=== PATIENT | male | born 1975 | race Caucasian/White ===

== ENCOUNTER 2018-03-31 15:19 | Inpatient (IN) | payer OTHER ==
[~2018-03-31] VITALS: Ht 175.3 cm; Wt 82.8 kg
--- NOTE | 2018-03-31 15:24 | ED PSYCHIATRIC COMPLAINT ---
History of Present Illness General Chief Complaint: Psychiatric Related Complaint Stated Complaint: BIBA HEARING VOICES Source: patient Exam Limitations: no limitations Vital Signs & Intake/Output Vital Signs & Intake/Output Vital Signs Date Time Temp Pulse Resp B/P B/P Pulse O2 O2 Flow FiO2 Mean Ox Delivery Rate 04/01 0643 98.6 55 16 116/71 97 Room Air 04/01 0324 98.0 56 16 104/68 97 Room Air 03/31 2329 98.8 79 20 123/62 99 Room Air 03/31 2140 97.7 66 20 103/50 96 Room Air 03/31 1918 97.7 66 20 129/77 97 Room Air 03/31 1701 98.0 72 20 123/69 99 Room Air 03/31 1534 97.8 62 18 138/71 98 Room Air ED Intake and Output 04/01 0000 03/31 1200 Intake Total 0 Output Total Balance 0 Intake, Oral 0 Allergies Coded Allergies: No Known Allergies (03/31/18) Triage Nurses Notes Reviewed? yes Onset: Gradual Duration: constant Timing: recent history Severity: severe Severity Numbers: 10 HPI: Patient is a 43-year-old male with a past medical history of asthma who presents emergency room with concerns of sudden onset history of hearing voices patient in which today he walked into [facility] however he did not have an appointment or and establishment with this facility and which the staff heard patient's history in which patient was brought in by ambulance for continuous auditory hallucinations which he states the voices are telling him that his family will be abducted and is threatening to him Patient denies any illicit drug use or alcohol use does smoke tobacco. Denies any illness denies any homicidal ideation patient lives with his girlfriend and his children in a private residence. Patient currently is not on medications patient has no history of prior to 7 months ago of auditory or visual hallucinations (Jacoby Muniz) Past History Travel History Traveled to [place] past 21 day No Medical History Any Pertinent Medical History? see below for history Respiratory: asthma Surgical History Surgical History: non-contributory Family History Hx Contributory? No (Jacoby Muniz) Review of Systems Review of Systems Constitutional: Reports: no symptoms. EENTM: Reports: no symptoms. Respiratory: Reports: no symptoms. Cardiovascular: Reports: no symptoms. GI: Reports: no symptoms. Genitourinary: Reports: no symptoms. Musculoskeletal: Reports: no symptoms. Skin: Reports: no symptoms. Neurological/Psychological: Reports: see HPI. Hematologic/Endocrine: Reports: no symptoms. Immunologic/Allergic: Reports: no symptoms. All Other Systems: Reviewed and Negative (Jacoby Muniz) Physical Exam Physical Exam General Appearance: no apparent distress, alert, comfortable Head: atraumatic Eyes: Bilateral: normal appearance. Ears, Nose, Throat: hearing grossly normal Respiratory: normal breath sounds, chest non-tender Cardiovascular: regular rate/rhythm Neurological/Psychiatric: no motor/sensory deficits, awake, calm Behavoir/Eye Contact/Speech: cooperative Thoughts/Hallucinations: auditory hallucinations Skin: intact, normal color SAD PERSONS SAD PERSONS Response Value Male Sex? yes 1 Age <19 or >45 years? yes 1 Total 2 SAD PERSONS Done? yes (Jacoby Muniz) Progress Differential Diagnosis: dementia, drug intoxication, drug overdose, drug withdrawal, electrolyte abnormality, encephalitis, hypoglycemia, hypothyroidism, IC hem/mass/tumor, meningitis Plan of Care: Orders Procedure Date/time Status Regular Diet 03/31 D Active Patient Safety Monitor 03/31 1523 Active URINE DRUG SCREEN FOR ER ONLY 03/31 1523 Complete ETHANOL 03/31 1523 Complete COMPREHENSIVE METABOLIC PANEL 03/31 1523 Complete CBC WITHOUT DIFFERENTIAL 03/31 1523 Complete ED CRISIS PSYCH CONSULT 03/31 1523 Active Laboratory Tests 03/31/18 1537: Urine Opiates Screen < 100, Methadone Screen < 40, Barbiturate Screen < 60, Ur Phencyclidine Scrn < 6.00, Amphetamines Screen < 100, U Benzodiazepines Scrn < 85, Urine Cocaine Screen < 50, Urine Cannabis Screen 78.80 H 03/31/18 1532: Anion Gap 11, Estimated GFR > 60, BUN/Creatinine Ratio 13.3, Glucose 91, Calcium 9.8, Total Bilirubin 0.6, AST 22, ALT 31, Alkaline Phosphatase 47, Total Protein 7.4, Albumin 4.3, Globulin 3.1, Albumin/Globulin Ratio 1.4, CBC w Diff NO MAN DIFF REQ, RBC 5.14, MCV 90.4, MCH 30.4, MCHC 33.6, RDW 12.9, MPV 7.7, Gran % 51.2, Lymphocytes % 37.8, Monocytes % 9.1, Eosinophils % 1.5, Basophils % 0.4, Absolute Granulocytes 4.2, Absolute Lymphocytes 3.1, Absolute Monocytes 0.7 H, Absolute Eosinophils 0.1, Absolute Basophils 0, Serum Alcohol < 10.0 Patient on initial presentation shows no signs of intoxication patient has concerning symptoms of auditory hallucinations, it is notes to me that crisis team evaluated patient and will be a bed search for admission Discussed handoff with Dr. Almeida Hand-Off Endorsed To: Levi Almeida MD Endorsed Time: 2300 Pending: other (BED SEARCH) (Jacoby Muniz) Hand-Off Endorsed To: Latrell Villareal MD Endorsed Time: 0700 Pending: other (Levi Almeida MD) Comments: 04/01/2018 7:32:44 AM patient signed out to me by Dr. Almeida at shift change control analyst. (Latrell Villareal MD) Departure Departure Disposition: STILL A PATIENT Condition: Stable Clinical Impression Primary Impression: Psychosis Secondary Impressions: Auditory hallucination Departure Forms: Customer Survey General Discharge Information (Jacoby Muniz) PA/ENVIRONMENTAL ATTORNEY Co-Sign Statement Statement: ED Attending supervision documentation- [] I saw and evaluated the patient. I have also reviewed all the pertinent lab results and diagnostic results. I agree with the findings and the plan of care as documented in the PA's/ENVIRONMENTAL ATTORNEY's documentation. [X] I have reviewed the ED Record and agree with the PA's/ENVIRONMENTAL ATTORNEY's documentation. [] Additions or exceptions (if any) to the PAs/ENVIRONMENTAL ATTORNEY's note and plan are summarized below: [] (Levi Almeida MD) Critical Care Note Critical Care Note Critical Care Time: 30-74 min (Jacoby Muniz)
[2018-03-31 15:51] LABS: ABSOLUTE BASOPHIL COUNT 0 /CUMM (0.0-0.2); ABSOLUTE EOSINOPHIL COUNT 0.1 /CUMM (0.0-0.7); ABSOLUTE GRANULOCYTE CT 4.2 /CUMM (1.4-6.5); ABSOLUTE LYMPH COUNT 3.1 /CUMM (1.2-3.4); ABSOLUTE MONOCYTE COUNT 0.7 /CUMM (0.10-0.60); BASOPHIL % 0.4 % (0.0-2.0); EOSINOPHIL % 1.5 % (0-5); GRANULOCYTE % 51.2 % (42.2-75.2); HEMATOCRIT 46.5 % (42-52); MEAN CORPUSCULAR HGB 30.4 PG (27.0-31.0); MEAN CORPUSCULAR HGB CONC 33.6 G/DL (33.0-37.0); MEAN CORPUSCULAR VOLUME 90.4 FL (80.0-94.0); MEAN PLATELET VOLUME 7.7 FL (7.4-10.4); PLATELET COUNT 305 /CUMM (130-400); RBC DISTRIBUTION WIDTH 12.9 % (11.5-14.5); RED BLOOD CELL CT 5.14 /CUMM (4.70-6.10); WHITE BLOOD CELL COUNT 8.2 /CUMM (4.8-10.8)
--- NOTE | 2018-03-31 19:01 | ED PSYCH CRISIS CONSULTATION ---
Crisis Consult Basic Assessment Date of Consult: 03/31/18 Responsible Person/Accompanied By: Brought in by ambulance from [facility]. Insurance Authorization: Insurance #1: Insurance name: SELF-PAY ED Provider: Patient's ED Provider: Jacoby Muniz Primary Care Physician: Patient's PCP: Patient Has No Primary Care Dr PCP's Phone Number: Current Psychiatrist: No current psychiatrist Chief Complaint: Psychiatric Related Complaint Patient's Quote: "I got voices...theyre threatening, condescending..." Present Illness: Patient is a 43 year old male who [facility] to [facility] emergency department by ambulance from [facility] mental health clinic. Patient was there as a walk - in seeking treatment. Patient reports auditory hallucinations and states "I got voices....they're threatening...condescending...telling me theyre going to abduct my family...get me in to retirement...get me committed to a psych hospital and my family will disappear." Patient reports he is from the [facility] and recently moved to [place]. Patient was also residing in [place] briefly. Patient currently lives with his girlfriend. his children (ages 1 & 4) and his girlfriend's family in a home in [place], [place]. Patient reports he has no current mental health treatment provider. Patient denies current psychotropic medications. Patient reports historical diagnosis of schizophrenia, schizoaffective disorder, and major depressive disorder. Patient reports he was previously prescribed Risperdal. Patient indicates he has had previous psychiatric hospitalizations at [facility] in [place], [place] and a hospital he could not recall in [place]. Patient denies any medical concerns and he is medically cleared by attending emergency department physician reading assistant BRITTANY Abrams. Patient's urine toxicology screening is positive for marijuana. Patient denies recent use but admits to using marijuana heavily about a month ago while living in [place]. Patient reports he tried marijuana to help with auditory hallucinations but they only made them worse and louder. Patient reports current auditory hallucinations. Patient reports first onset of hearing voices was about 6 years. Patient indicates these have intensified over the past 7 months - he asserts they are now present "everyday 29/04." Patient denies visual hallucinations. Patient denies any command hallucinations. Patient denies current or past suicidal ideation, intent or plan. Patient states "I'm a strong willed person" when asked about self harm thoughts. A Gilchrist Suicide Severity Rating Scale (C.-S.S.R.S.) was administered with no significant risk factors identified. Patient presents alert, oriented with flat affect / depressed mood. Patient asserts the recent intensification of the auditory hallucinations have impacted his ability to function and concentrate. Patient only identified his girlfriend as a support. Patient reports his girlfriend is deaf and can be reached by TTY at - however when this check writer salesperson attempted to call, the phone was not setup. Patient is unemployed currently and has been for ~5 years. 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 Patient's Address: [address] [place] [address] Who Do You Live With? Significant Other Family/Informants Interviewed: Girlfriend Oxana Krishna (Gf is *) Allergies - Coded Allergies: No Known Allergies (03/31/18) Laboratory Results: Laboratory Tests 03/31/18 1537: Urine Opiates Screen < 100, Methadone Screen < 40, Barbiturate Screen < 60, Ur Phencyclidine Scrn < 6.00, Amphetamines Screen < 100, U Benzodiazepines Scrn < 85, Urine Cocaine Screen < 50, Urine Cannabis Screen 78.80 H 03/31/18 1532: Anion Gap 11, Estimated GFR > 60, BUN/Creatinine Ratio 13.3, Glucose 91, Calcium 9.8, Total Bilirubin 0.6, AST 22, ALT 31, Alkaline Phosphatase 47, Total Protein 7.4, Albumin 4.3, Globulin 3.1, Albumin/Globulin Ratio 1.4, CBC w Diff NO MAN DIFF REQ, RBC 5.14, MCV 90.4, MCH 30.4, MCHC 33.6, RDW 12.9, MPV 7.7, Gran % 51.2, Lymphocytes % 37.8, Monocytes % 9.1, Eosinophils % 1.5, Basophils % 0.4, Absolute Granulocytes 4.2, Absolute Lymphocytes 3.1, Absolute Monocytes 0.7 H, Absolute Eosinophils 0.1, Absolute Basophils 0, Serum Alcohol < 10.0 Past History Past Medical History Neurological: NONE EENT: NONE Cardiovascular: NONE Respiratory: asthma Gastrointestinal: NONE Hepatic: NONE Renal: NONE Musculoskeletal: NONE Psychiatric: NONE Endocrine: NONE Past Surgical History Surgical History: non-contributory Psychosocial History Strengths/Capabilities: Patient has fair insight and is amenable to treatment. Physical Limitations (Interventions): None assessed Psychiatric Treatment History Psych Treatment Psychiatric Treatment Yes Inpatient Treatment Yes Outpatient Treatment Yes Location of Treatment [facility] Reason for Treatment Schizoaffective disorder Dates of Treatment 2011 - present Response to Treatment Unknown Diagnosis by History: Schizoaffective Disorder Schizophrenia Spectrum Disorder Major Depressive Disorder Substance Use/Abuse History Drug Use/Abuse Substances Used/Abused Yes Substance Used/Abused Marijuana First Use Patient did not specify Last Used Patient reports last use was one month ago. How much used/taken Patient did not specify exact amount used. How often Patient reports use ~2 x per day. For how long Patient reports longstanding use of marijuana. Route of use Inhalation. Substance Abuse Treatment Substance Abuse Treatment Past Substance Abuse [place] No Current Mental Status Mental Status Orientation: Person, Place, Situation Affect: Flat Speech: WNL Neuro-vegetative: Anhedonia, Concentration Poor Appearance Appearance- Dress/Hygiene: Patient dressed in hospital attire. Long hair. Cabrera skin. Behaviors Thought Process: WNL Thought Content: Auditory Hallucinations Memory: WNL Insight: Fair SI/HI Risk Assessment Past Suicidal Ideation/Attempts No (Patient denies/. ) Current Suicidal Ideation/Att No (Patient denies .) Past Homicidal Ideation/Att: No Current Homicidal Ideation/Attempts No Degree of Intent: None Risk Factors: chronic/serious med cond., SA/MH hospitalized, substance abuse, male, Auditory hallucinations. Lethality Ratin PTSD Checklist PTSD Done? patient declined (No trauma history reported.) ED Management Sitter: Yes Restraints: No (Patient is calm & cooperative.) DSM5/PS Stressors/Medical Prob Diagnosis' (DSM 5, Stressors, Medical): F29 Unspecified schizophrenia spectrum and other psychotic disorder Current GAF: 25 Comments: Unemployed Departure Disposition Psych Medical Clearance Date: 03/31/18 Medically Cleared at: 1744 Time Started: 1744 Time Ended: 1844 Psychiatrist Consulted: Dr. Rakesh Obregon M.D. Date Disposition Established: 03/31/18 Time Disposition Established: 1844 Plan for Disposition - Modality: Bed Search Rationale for Disposition: Crisis evaluation reviewed with on-call psychiatrist Dr. Obregon. Patient meets criteria currently for an inpatient psychiatric admission due to symptoms of psychosis and need for psychiatric stabilization. Referrals Patient Has No Primary Care Dr (PCP/Family)
--- NOTE | 2018-04-01 13:27 | IP CRISIS DIAG ASSESS PSYCH ---
Diagnostic Assessment Basic Assessment Insurance Authorization: Pt was authorized for 3 units of inpatient care from 04/01/18 through 04/03/18 through [employer]. Auth # [id number] and client auth # is [id number] Primary Care Physician: Patient's PCP: Patient Has No Primary Care Dr PCP's Phone Number: Patient's Quote: "I got voices...theyre threatening, condescending..." Present Illness: Per Crisis Consult authored by Presley Wang LCSW: Patient is a 43 year old male who presents to [facility] emergency department by ambulance from [facility]. Patient was there as a walk - in seeking treatment. Patient reports auditory hallucinations and states "I got voices....they're threatening...condescending...telling me theyre going to abduct my family...get me in to fci...get me committed to a psych hospital and my family will disappear." Patient reports he is from the [facility] and recently moved to [place]. Patient was also residing in [place] briefly. Patient currently lives with his girlfriend. his children (ages 1 & 4) and his girlfriend's family in a home in [place], [place]. Patient reports he has no current mental health treatment provider. Patient denies current psychotropic medications. Patient reports historical diagnosis of schizophrenia, schizoaffective disorder, and major depressive disorder. Patient reports he was previously prescribed Risperdal. Patient indicates he has had previous psychiatric hospitalizations at [facility] in [place], [place] and a hospital he could not recall in [place]. Patient denies any medical concerns and he is medically cleared by attending emergency department physician surveyor instrument assistant BRITTANY Abrams. Patient's urine toxicology screening is positive for marijuana. Patient denies recent use but admits to using marijuana heavily about a month ago while living in [place]. Patient reports he tried marijuana to help with auditory hallucinations but they only made them worse and louder. Patient reports current auditory hallucinations. Patient reports first onset of hearing voices was about 6 years. Patient indicates these have intensified over the past 7 months - he asserts they are now present "everyday 29/04." Patient denies visual hallucinations. Patient denies any command hallucinations. Patient denies current or past suicidal ideation, intent or plan. Patient states "I'm a strong willed person" when asked about self harm thoughts. A Victoria Suicide Severity Rating Scale (C.-S.S.R.S.) was administered with no significant risk factors identified. Patient presents alert, oriented with flat affect / depressed mood. Patient asserts the recent intensification of the auditory hallucinations have impacted his ability to function and concentrate. Patient only identified his girlfriend as a support. Patient reports his girlfriend is deaf and can be reached by TTY at - however when this brief writer attempted to call, the phone was not setup. Patient is unemployed currently and has been for ~5 years. 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 Patient requires acute psychiatric inpatient treatment. Patient's Address: [address] [place] [address] Other Phone Number: Who Do You Live With? Patient/Self Feel Safe Where You Live? Yes Feel Safe in Your Relationship Yes Marital Status: single Do You Have Children? Yes Ages? 1 & 4 Primary Language? Iranian Language(s) Spoken At Home: Iranian Family/Informants Interviewed: Girlfriend Oxana Krishna (Gf is deaf*) Allergies - Coded Allergies: No Known Allergies (03/31/18) Consequences of Psych Med Use: pt has a hx of using risperdal in the past. not currently on medication. Lab Results: Laboratory Tests 03/31/18 1537: Urine Opiates Screen < 100, Methadone Screen < 40, Barbiturate Screen < 60, Ur Phencyclidine Scrn < 6.00, Amphetamines Screen < 100, U Benzodiazepines Scrn < 85, Urine Cocaine Screen < 50, Urine Cannabis Screen 78.80 H 03/31/18 1532: Anion Gap 11, Estimated GFR > 60, BUN/Creatinine Ratio 13.3, Glucose 91, Calcium 9.8, Total Bilirubin 0.6, AST 22, ALT 31, Alkaline Phosphatase 47, Total Protein 7.4, Albumin 4.3, Globulin 3.1, Albumin/Globulin Ratio 1.4, CBC w Diff NO MAN DIFF REQ, RBC 5.14, MCV 90.4, MCH 30.4, MCHC 33.6, RDW 12.9, MPV 7.7, Gran % 51.2, Lymphocytes % 37.8, Monocytes % 9.1, Eosinophils % 1.5, Basophils % 0.4, Absolute Granulocytes 4.2, Absolute Lymphocytes 3.1, Absolute Monocytes 0.7 H, Absolute Eosinophils 0.1, Absolute Basophils 0, Serum Alcohol < 10.0 Toxicology Screen Completed? Yes Results: positive Symptoms of Use: marijuana Past History Abuse/Trauma History Trauma History/Current Trauma: Denies Legal History Current Legal Status: none Have you ever been arrested? No Psychosocial History Strengths/Capabilities: Patient has fair insight and is amenable to treatment. Physical Limitations (Interventions): None assessed Psychiatric Treatment History Psych Treatment Psychiatric Treatment Yes Inpatient Treatment Yes Outpatient Treatment Yes Location of Treatment [place] & [place] Reason for Treatment Schizoaffective disorder Dates of Treatment 2011 - present Response to Treatment Unknown Diagnosis by History: Schizoaffective Disorder Schizophrenia Spectrum Disorder Major Depressive Disorder Risk Factors: chronic/serious med cond., SA/MH hospitalized, substance abuse, male, Auditory hallucinations. Substance Use/Abuse History Drug Use/Abuse minimum 12mo Hx Substances Used/Abused Yes Substance Used/Abused Marijuana First Use Patient did not specify Last Used Patient reports last use was one monthago. How much used/taken Patient did not specify exact amount used. How often Patient reports use ~2 x per day. For how long Patient reports longstanding use of marijuana. Route of use Inhalation. Substance Abuse Treatment Substance Abuse Treatment Past Substance Abuse [place] No Sexual History Sexually Active Yes # of partners 1 Sexual Orientation Heterosexual Current Mental Status Mental Status Orientation: Person, Place, Situation Affect: Flat Speech: WNL Neuro-vegetative: Anhedonia, Concentration Poor Appearance Appearance- Dress/Hygiene: Patient dressed in hospital attire. Long hair. Cabrera skin. Behaviors Thought Process: WNL Thought Content: Auditory Hallucinations Memory: WNL Insight: Fair SI/HI Risk Assessment - Minimum 6mo History- Past Suicidal Ideation/Attempts No (Patient denies) Current Suicidal Ideation/Att No (Patient denies .) Past Homicidal Ideation/Att: No Current Homicidal Ideation/Attempts No Degree of Intent: None Risk Factors: chronic/serious med cond., SA/MH hospitalized, substance abuse, male, Auditory hallucinations. Lethality Ratin Needs/Init [place] Plan/Goals: 1. Comphrensive Psychosocial Assessment 2. Medication Evaluation 3. Psychiatric Evaluation 4. Individual Therapy 5. Group Therapy 6. Family Meeting AUDIT-C Questionnaire: AUDIT-C Questionnaire: Response Value ETOH use in the past year Never 0 # drinks typical/day Doesn't Drink 0 6 or > drinks per occasion Never 0 Total 0 DSM5/PS Stressors/Medical Prob Diagnosis' (DSM 5, Stressors, Medical): F29 Unspecified schizophrenia spectrum and other psychotic disorder F12.20 Cannabis Use Disorder, Severe Stressors: Unemployed Current GAF: 25 Current GAF: 25
[2018-04-01 16:00] VITALS: BP 131/64
[2018-04-01 19:40] VITALS: BP 136/76
[2018-04-01] MEDS ORDERED: ATIVAN1 M1 PO (19:55)
[2018-04-01] MEDS ORDERED: BENZTROPINE MESY1 M1 PO (19:57)
[2018-04-01] MEDS ORDERED: HALOPERIDOL5 MG PO (19:57)
--- NOTE | 2018-04-01 23:29 | History & Physical ---
General Information and HPI MD Statement: I have seen and personally examined KATLIN DE LEÓN and documented this H&P. The patient is a 43 year old M who presented with a patient stated chief complaint of [ medical evaluation]. Source of Information: patient Exam Limitations: no limitations History of Present Illness: 43 YO male with no significant past medical history came to emergency room with concerns of hearing voices. He is subsequently admitted in [facility]. Patient offers no complaints. He does not take any medications. 14 point ROS is unremarkable. Patient denies any illicit drug use. He uses alcohol socially and smokes 1 PPD ciggs. He denies SI or homicidal ideation. Allergies/Medications Allergies: Coded Allergies: No Known Allergies (03/31/18) Home Med list Benztropine Mesylate 1 MG TABLET 1 MG PO EXTRAP (Reported) Haloperidol 5 MG TABLET 5 MG PO PSYCHOSIS (Reported) LORazepam (Ativan) 1 MG TAB 1 MG PO AGITATION/ANXIETY (Reported) Compliance With Home Meds: UNKNOWN Past History Travel History Traveled to [facility] past 21 day No Medical History Neurological: NONE EENT: NONE Cardiovascular: NONE Respiratory: asthma Gastrointestinal: NONE Hepatic: NONE Renal: NONE Musculoskeletal: NONE Psychiatric: depression, schizo affective disorder, schizophrenia Endocrine: NONE Isolation History: Standard Surgical History Surgical History: non-contributory Past Family/Social History Family History Relations & Conditions if any Relation not specified for: *No pertinent family history Psychosocial History Smoking Status: Current Everyday Smoker ETOH Use: occasional use Illicit Drug Use: marijuana Functional Ability ADLs Independent: dressing, eating, toileting, bathing. Ambulation: independent IADLs Independent: shopping, housework, finances, food prep, telephone, transportation , medication admin. Review of Systems Review of Systems Constitutional: Reports: see HPI. Exam & Diagnostic Data Last 24 Hrs of Vital Signs/I&O Vital Signs Date Time Temp Pulse Resp B/P B/P Pulse O2 O2 Flow FiO2 Mean Ox Delivery Rate 04/01 1940 95.7 66 136/76 04/01 1707 98.3 67 15 111/72 97 04/01 1600 96.5 76 131/64 04/01 1400 98.0 58 18 110/69 100 Room Air 04/01 1205 97.7 63 18 121/59 97 Room Air 04/01 0905 98.7 77 18 115/73 96 Room Air 04/01 0643 98.6 55 16 116/71 97 Room Air 04/01 0324 98.0 56 16 104/68 97 Room Air 03/31 2329 98.8 79 20 123/62 99 Room Air Physical Exam General Appearance Alert, Oriented X3, Cooperative, No Acute Distress Skin No Rashes, No Breakdown HEENT Atraumatic, PERRLA, EOMI Neck Supple, No JVD, No thryomegaly Lymphatic Cervical nl Cardiovascular Regular Rate, Normal S1, Normal S2, No Murmurs Lungs Clear to Auscultation, Normal Air Movement Abdomen Normal Bowel Sounds, Soft, No Tenderness Neurological Exam Findings: Normal Gait, Normal Speech, Strength at 5/5 X4 Ext, Normal Tone, Sensation Intact, Cranial Nerves 3-12 NL, Reflexes 2+ Cranial Nerves II through XII: 3 to 12 intact Extremities No Clubbing, No Cyanosis, No Edema, Normal Pulses Vascular Normal Pulses, Pulses Symmetrical Last 24 Hrs of Labs/Lan: Laboratory Tests 03/31 03/31 1537 1532 Chemistry Sodium (137 - 145 mmol/L) 144 Potassium (3.5 - 5.1 mmol/L) 4.2 Chloride (98 - 107 mmol/L) 102 Carbon Dioxide (22 - 30 mmol/L) 30 Anion Gap (5 - 16) 11 BUN (9 - 20 mg/dL) 12 Creatinine (0.7 - 1.2 mg/dL) 0.9 Estimated GFR (>60 ml/min) > 60 BUN/Creatinine Ratio (7 - 25 %) 13.3 Glucose (65 - 99 mg/dL) 91 Calcium (8.4 - 10.2 mg/dL) 9.8 Total Bilirubin (0.2 - 1.3 mg/dL) 0.6 AST (17 - 59 U/L) 22 ALT (21 - 72 U/L) 31 Alkaline Phosphatase (< 127 U/L) 47 Total Protein (6.3 - 8.2 g/dL) 7.4 Albumin (3.5 - 5.0 g/dL) 4.3 Globulin (1.9 - 4.2 gm/dL) 3.1 Albumin/Globulin Ratio (1.1 - 2.2 %) 1.4 Hematology CBC w Diff NO MAN DIFF REQ WBC (4.8 - 10.8 /CUMM) 8.2 RBC (4.70 - 6.10 /CUMM) 5.14 Hgb (14.0 - 18.0 G/DL) 15.6 Hct (42 - 52 %) 46.5 MCV (80.0 - 94.0 FL) 90.4 MCH (27.0 - 31.0 PG) 30.4 MCHC (33.0 - 37.0 G/DL) 33.6 RDW (11.5 - 14.5 %) 12.9 Plt Count (130 - 400 /CUMM) 305 MPV (7.4 - 10.4 FL) 7.7 Gran % (42.2 - 75.2 %) 51.2 Lymphocytes % (20.5 - 51.1 %) 37.8 Monocytes % (1.7 - 9.3 %) 9.1 Eosinophils % (0 - 5 %) 1.5 Basophils % (0.0 - 2.0 %) 0.4 Absolute Granulocytes (1.4 - 6.5 /CUMM) 4.2 Absolute Lymphocytes (1.2 - 3.4 /CUMM) 3.1 Absolute Monocytes (0.10 - 0.60 /CUMM) 0.7 H Absolute Eosinophils (0.0 - 0.7 /CUMM) 0.1 Absolute Basophils (0.0 - 0.2 /CUMM) 0 Toxicology Urine Opiates Screen (>2000 NG/ML) < 100 Methadone Screen (>300 NG/ML) < 40 Barbiturate Screen (>200 NG/ML) < 60 Ur Phencyclidine Scrn (>25 NG/ML) < 6.00 Amphetamines Screen (>1000 NG/ML) < 100 U Benzodiazepines Scrn (>200 NG/ML) < 85 Urine Cocaine Screen (>300 NG/ML) < 50 Urine Cannabis Screen (>50 NG/ML) 78.80 H Serum Alcohol (<10 MG/DL) < 10.0 Assessment/Plan Assessment: # Schizoaffective Disorder : agree with psych plan. As Ranked By This Provider Problem List: 1. Auditory hallucination 2. Psychosis Miscellaneous Miscellaneous Documentation Attending Case Discussed With: Rakesh Obregon MD Primary Care Physician: Patient Has No Primary Care Dr Patient sees these Specialists none Level of Patient Care: [facility] Resident Review Statement Resident Statement: reviewed images Attending MD Review Statement Attending Statement Attending MD Statement: I personally interviewed and noted H and P
--- NOTE | 2018-04-01 23:30 | Admission Certification ---
Admission Certification Certification Statement - As attending physician, I certify that at the time of - admission, based on clinical presentation, severity of - symptoms, need for further diagnostic testing and - therapeutic interventions, and risk of adverse outcomes - without in-hospital treatment, in my clinical assessment, - this patient requires an acute hospital stay for a minimum - of two nights or longer. I have also considered psychsocial - factors such as support system, advanced age, financial - issues, cognitive issues, and failed out-patient treatments, - past re-admission history, safety of patient, and lack of - compliance as applicable. Specific rationale supporting this admission is: Schizoaffective Disorder
[2018-04-02 08:13] VITALS: BP 116/86
--- NOTE | 2018-04-02 09:14 | CPS PROVIDER INIT ASMT PSYCH ---
Psychiatric Admission Geospatial Image Analyst's Note Reviewed: Yes Patient Seen and Examined: Yes Identifying Information: Patient is a 43 year old male who presents to [facility] emergency department by ambulance from [facility] health clinic. Chief Complaint: "I got voices...theyre threatening, condescending..." Reaction to Hospitalization: The patient was admitted voluntarily History of Present Illness Onset of Illness: It looks like the patient has a severe psychiatric illness since 2011 Circumstances Leading to Admission: The patient was hearing voices that were condescending, deprecating, and commanding him to suicide Problem(s) Justifying Need for Admission: Auditory hallucinations with command to suicide Past Psychiatric History Past Diagnosis(es)- if any: Schizophrenia or schizoaffective disorder Past Precipitating Factors- if any: Nonadherence to medication, unstable housing - Include inpatient and outpatient treatment Treatment History: The patient has received inpatient treatment in [place] and [place]. History of Suicide Attempts or Gestures Denied Substance Abuse History: Significant cannabis use history Allergies: Coded Allergies: No Known Allergies (03/31/18) Home Med List: Has not been on medications lately - Include any medical condition(s) that may - impact the patient's recovery/remission Past History Medical History Neurological: NONE EENT: NONE Cardiovascular: NONE Respiratory: asthma Gastrointestinal: NONE Hepatic: NONE Renal: NONE Musculoskeletal: NONE Psychiatric: depression, schizo affective disorder, schizophrenia Endocrine: NONE Isolation History: Standard Surgical History Surgical History: non-contributory Psychiatric Family/Social Hx Family History Psychiatric Illness: He denied family history of schizophrenia or other major psychiatric illnesses Substance Use: He denied family history of alcoholism or substance use Suicides: He denied family history of suicides Social History Living Situation: Lives with girlfriend in [place] Significant Relationships (family/friends): Girlfriend and 2 children Education: Not explored Vocation/Occupation: Unemployed Legal: Not explored Healthly Behaviors Screening Tobacco Screening Tobacco Use from ED Docu: Refused to answer - If tobacco counseling indicated - the following topics are required. - #1 Recognizing dangerous situations. - #2 Coping Skills. - #3 Basic information about quitting. Status of Tobacco Cessation Counseling: #1, #2 AND #3 Completed Cessation Med Status Nicotine Gum Ordered Alcohol Screening - ETOH screen POS if BAL >=80 or Audit-C>= M4/F3 Audit-C Score from Diag Assess: 0 Blood Alcohol Level: Laboratory Tests 03/31 1532 Toxicology Serum Alcohol (<10 MG/DL) < 10.0 Alcohol Use Screening Results: Neg per Audit C &/or BAL - If ETOH counseling indicated - the following topics are required. - #1 Express concern about the patient's - drinking at unhealthy levels, include informing - of national norms for moderate drinking: - men <= 14 drinks/week, max 4 drinks/occasion - women <= 7 drinks/week, max 3 drinks/occasion - #2 Providing feedback, including linking alcohol to - negative physical effects (liver injury, hypertension) - negative emotional effects (relationship problems and - depression) - negative occupational consequences (reduced work - performance) - #3 Advising the patient to abstain from alcohol or - to drink below national norms for moderate drinking - (as listed above). Status of ETOH Use Counseling: N/A B/C NO ETOH Use Metabolic Screening - Screen if on a Neuroleptic Medication - Metabolic screening should include: - Blood Pressure, BMI, Glucose or Hgb A1c, & a - Lipid profile from within the past 365 days. Metabolic Screening Patient on a neuroleptic(s) . Enter below results for Hemoglobin A1C, and lipid panel if obtained during the last 365 days. Blood Pressure: 95/62 Laboratory Results From [facility] (If applicable): tests ordered Exam and Plan Mental Status Examination Ambulation Status: The patient was steady on his feet. Appearance: Very long hair in need of a trim, slightly disheveled Attitude towards examiner: Cooperative and calm Psychomotor activity: Normal psychomotor activity Behavior: No abnormal or bizarre behaviors. Quality of speech: Normal speech. Affect: Constricted affect Mood: Depressed mood Suicidal Ideation: Commands of suicide Homicidal Ideation: Denied homicidal ideation Hallucinations: Acknowledge multiple voices he believes 3 or 4 voices Paranoid/Delusional Material: Did not seem paranoid, there were no specific delusions during the interview Difficulties with thought organization: He was coherent, there was no thought disorder. Insight: Seems to have good insight. Judgment: Showed good judgment in hypothetical situations. Orientation: He was alert and oriented to time, place, and person. Cognition: He did have some difficulties with attention and concentration. Memory Function: Did not seem to have any difficulties with short-term memory. Estimate of intellectual functioning: Average. Assets/Strengths Patient Identified Assets/Strengths: Patient summary to be resilient and resourceful, he has a supportive girlfriend. Impression/Plan Impression and Plan: 43-year-old single white male who was admitted because of command hallucinations to hurt self. The patient was admitted previously in [place] and may be also on [place]. The patient's girlfriend lives locally in [facility] and has been living with her recently. He still has active hallucinations of 3 or 4 voices telling him to hurt himself as well as other deprecating statements - Include all active medical diagnosis that require tx DSM 5 Diagnosis(es): Other specified schizophrenia spectrum cannabis use disorder - Initial Tx Plan for Active Psych & Medical Conditions Treatment Plan: Inpatient psychiatric care with safety checks every 15 minutes Nursing assessments, vital signs, and patient education and Biopsychosocial assessment by social work, collateral information, and aftercare planning. Group therapy, milieu therapy, activities therapy Discontinue Risperdal and replace it with olanzapine 7.5 mg at bedtime - Factors that would help patient function - in a less restrictive setting. Factors: The patient would be discharge once the hallucinations are under reasonable control and no longer giving him commands to kill self
--- NOTE | 2018-04-02 12:08 | SOCIAL WORKER SOCIAL HX PSYCH ---
Social History Basic Assessment Insurance Authorization: Insurance #1: Insurance name: [employer] Phone number: Policy number: [id number] Group number: Authorization number: PENDING Curr Source of Income/Entitlements: none Primary Care Physician: Patient's PCP: Patient Has No Primary Care Dr PCP's Phone Number: Present Problem: Patient reports that he has been hearing extremely intrusive, disturbing voices for the past 7 months, and, consequently he has been unable to work, and has been not functioning well in all aspects of his life. Patient indicated that the voices completely dominate his life at present. Primary Language? Japanese Language(s) Spoken At Home: Japanese Living Situation Other Living Arrangement: friend's home Feel Safe Where You Are Living Yes Feel Safe in Relationships? Yes Allergies - Coded Allergies: No Known Allergies (03/31/18) Current Medications - Miscellaneous Medications Benztropine Mesylate 1 MG TABLET 1 MG PO EXTRAP (Reported) Entered as Reported by Mckenna Esquivel on 04/01/181956 Haloperidol 5 MG TABLET 5 MG PO PSYCHOSIS (Reported) Entered as Reported by Mckenna Esquivel on 04/01/181956 LORazepam (Ativan) 1 MG TAB 1 MG PO AGITATION/ANXIETY (Reported) Entered as Reported by Mckenna Esquivel on 04/01/181954 Consequences of Psych Med Use: patient is very disturbed by voices, and they are with him "all the time", and patient hopeful medicine might help. Past History Past Medical History Neurological: NONE EENT: NONE Cardiovascular: NONE Respiratory: asthma Gastrointestinal: NONE Hepatic: NONE Renal: NONE Musculoskeletal: NONE Psychiatric: depression, schizo affective disorder, schizophrenia Endocrine: NONE Past Surgical History Surgical History: non-contributory /Family History Place/Country of Origin: Born in [place] where he lived until age of 5 years. The family moved to [place], [place], then to [place], [place] where he has lived the longest. Childhood Family Constellation: Dad was the primary produce department manager. Mother in the picture most of the time. Patient has 3 brothers and one sister. Primary Childhood Caretakers: father, mother Family Life During Childhood: Patient seemed to have problems focusing, but he stated that he had "regular family life". DCF Involvement? No Mother's Age (Current/): 70 Relationship w/Mother: "good" Father's Age (Current/): 70 Relationship w/Father: good Any Sibling(s)? Yes Sibling's Gender(s)/Age(s): male Sibling 1:, male Sibling 2:, female Sibling 3:, male Sibling 4: Relationship w/Sibling(s): we got along pretty well, but I have not really interacted with anyone for past 7 months due to voices. Relationship w/Friends: have a few friends Family Psych/Sub Abuse/Add Hx: patient denies Abuse/Trauma History Trauma History/Current Trauma: Denies Legal History Current Legal Status: none Pending Court Dates: none Have you ever been arrested Yes Number of Arrests: 40 Hx of Juvenile Legal Charges? No Hx of Adult Legal Charges? Yes If Yes: misdemeanor List/Date Most Recent Lgl Chgs: "having 60 pounds of weed". Chgs/Dts/Incarcerations/Sentnc patient has been in [facility] at least 10 times, and the latest resulted in 2.5 year sentence and incarceration in [place]. Patient states that all charges have been misdemeanors, and have been result of mostly due to cannabis. Civil Proceedings: no Domestic Relations Court: no Child Protective Serv Involvmnt no Range Scientist none Psychosocial History Primary Support System: significant other Strengths/Capabilities: Patient has fair insight and is amenable to treatment. Weaknesses: patient has limited support system, and feels that he is very impaired. Physical Limitations (Interventions): None assessed History of Seizures? No History of Blackouts? No ADL Limitations: none asserted Thurman/Social/Peer Relations patient states that he has a "few friends", but not that close. Relies on significant other. Meaningful Activities: just work Childhood Yarsanism: no rastafarian stated Current Amish Affiliation: no rastafarian stated Is Spirituality Important to You? no Patient's Ethnicity: Japanese (Luxembourger) Cultural/Ethnic Issues: none reported Are There Developmental Issues? No Milestones Achieved: WNL Psychiatric Treatment History Psych Treatment Inpatient Treatment Yes Outpatient Treatment Yes Location of Treatment [place] Reason for Treatment Schizoaffective disorder Dates of Treatment 2011 - present Response to Treatment Unknown Precipitating Factors: unknown Current Finisher Wallboard And Plasterboard: none Treatment of Prior Episodes: inpatient hospitalizations stabilized patient Diagnosis: Schizoaffective Disorder Schizophrenia Spectrum Disorder Major Depressive Disorder Psychodynamic Issues: limited support system Risk Factors: chronic/serious med cond., SA/MH hospitalized, substance abuse, male, limited support, Auditory hallucinations. Substance Use/Abuse History Drug Use/Abuse:Min 12 mo hx Substance Used/Abused Marijuana First Use 18 years old Last Used Patient reports last use was one monthago. How much used/taken Patient did not specify exact amount used. How often Patient reports use ~2 x per day. For how long Patient reports longstanding use of marijuana. Since age 18. Route of use Inhalation. Have Had Periods of Sobriety? Yes Explain: patient has been in [facility] and [facility] numerous times. Relapse History? Yes Explain: Patient feels that he benefits from cannabis, with quieting voices and calming him down. Have You Ever Attended AA? No Do You Attend AA Currently? No Do You Have a Sponsor? No Other Community Resources Used: no Symptoms of Use: marijuana Substance Abuse Treatment Substance Abuse Treatment Inpatient Treatment No Sexual History Sexually Active Yes # of partners 1 Sexual Orientation Heterosexual Use of Protection Yes Sometimes Sexual Concerns: none stated Education History Highest Level of Education: high school/GED, half semester of college Highest Grade Completed: 12 Preferred Learning Style: experiential HX of Learning Difficulties: None reported Barriers to Learning: None reported Special Communication Needs: None reported Employment History Employment Unemployed 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 of Jobs in Last 5 Years: 4 Attendance: Normal Performance: Good Comments: can't work due to the voices making it impossible to concentrate on anything. History Have You Been in The ? No Current Mental Status Mental Status Orientation: Current situation, Person, Place, Situation Affect: Anxious, Flat Speech: Poverty, WNL Neuro-vegetative: Anhedonia, Concentration Poor, Helpless Appearance Appearance- Dress/Hygiene: Patient dressed in hospital attire. Long hair. Cabrera skin. Behaviors Thought Process: WNL Thought Content: Auditory Hallucinations Memory: WNL Insight: Fair SI/HI Risk Assessment Past Suicidal Ideation/Attempts No (Patient denies) Current Suicidal Ideation/Att No (Patient denies .) Past Homicidal Ideation/Att: No Current Homicidal Ideation/Attempts No Degree of Intent: None Risk Factors: Access to lethal weapons, SA/MH Hospitalization(s), Male, Substance Abuse Lethality Ratin - Conclusion and Recommendations for treatment - and discharge planning Summary: Patient is hopeful to get some relief from voices that are extremely disturbing to him.
[2018-04-02 12:20] VITALS: BP 95/62
--- NOTE | 2018-04-02 13:25 | SOCIAL WORKER PROG NOTE PSYCH ---
Social Work Progress Note Progress Note Couples meeting with Katlin schedule for 04/03 at 1pm (with and LAISHA). Asked Nursing to get MARTII for hearing impaired translation (Video). Attempted to meet with Katlin a couple times today, but he was eating. Did meet with him this evening, his girlfriend, Oxana Krishna , was visiting and wanted to meet as well with Katlin and I. His girlfriend, Oxana is hearing impaired and uses sign language. For the purpose of the meeting today, per her suggestion used typing on the computer to complete meeting. (Copy of meeting discussion in chart). Katlin signed an ISATU (in chart). He reported having AH - he stated voices have been telling him to cut his throat. He stated he has been having AH - CAH. for the pat 6-7 months, he has tried to get help but nothing has helped so far. He has been on Risperdal, Haldol, Zoloft. He stated he had some voices prior to 6-7 months ago, but never this bad. He denied any family history of psychiatric issues. He stated he spent 1 -day at [facility] - got medications then left. He was inpatient 1 week at a psychiatric hospital - he is uncertain of the name - he things it is: [facility] did internet search with patient and his girlfriend. He rates depression 10/10(worst) and anxiety 10/10. He moved to [place] February 04. His stated they were communicating mostly by phone - text prior to his coming to [place]. They have (2) children - a 1yo Veronica and 4yo Beau. Concerns about Katlin caring for children was expressed -see below. She stated her Mother can help and advised he not be alone with children for a while until his symptoms are clear (while in IOP). Katlin seemed to tolerate meeting, he did state voices were there but he was able to engage. Both appear loving and supportive. Possibly see if Oxana's Mother can come into meeting as well at some point - to discuss supports. Here is summary of meeting: LUCILLE(LAISHA) Do you have any concerns today? OXANA: Concerned about him, hes not OK. Lenka been wanting to find a solution or something to help him feel better and more comfortable generally with life. He is struggling LUCILLE- LAISHA- This is his first day. We are getting to know him. Really need tower climber to gather more history from you. Im hoping this current stay is more helpful than the other times. Its his first day and first time at [facility]. But not his first time checking into a hospital (Oxana asked about his treatment here on inpatient - described typical day. Also discussed aftercare - recommend IOP- explained IOP. OXANA: I WAS ASKING HIM IF HE STOPPED TAKING PILLS BECAUSE HE RAN OUT OR BECAUSE HE THOUGHT THEY WERE NOT WORKING. I THOUGHT I COULD TELL WHEN HE WAS ON MEDICAITON AND WHEN HE WAS NOT, BUT SOMETIMES HE WILL SAY I STOIPPED TAKING 2 OR 3 DAYS AGO THEN I REALIZE I DONT KNOW WHEN HE WAS OR WAS NOT ON MEDICATION LUCILLE :(LAISHA) DID YOU SEE A DIFFERENCE IN KATLIN WHEN HE WAS TAKINGT MEDS?SO SO? OXANA: I DONT KNOW WHEN HE TAKES OR DOESNT TAKE MEDS NOW I DONT ALWAYS SEE HIM TAKE IT. LUCILLE: (LAISHA) WE WANT YOU TO GET BACK TO YOUR LIFE. HOW IS KATLIN WITH THE BABIES? 1YO AND 4YO? OXANA: Ya know, normal to get frustrated and stressed when our 4yo child doesn t listen.. I know thats already part of who katlin is, he yells and gets solis, but I yell and get solis too He is good with them, earlier in the month he was fine with changing diapers and feeding them. But when it gets worse, I am not comfortable with the idea of leaving the kids with him for hours when I go out to do errands, because I want the kids to eat well but Yes good. Thats good. To help decrease stress for katlin. does you rmom watch them too? My mom and my dad and his girlfriend all have been helping out with childcare. I guess it wasnt a good idea to leave the kids with him for hours when I went and did errands with my mom? I think stress is part of what brought out the symptoms. LUCILLE (LAISHA) A recent move to [place] even though its the best for the two of you and the kids, can exacerbate symptoms any kind of strees good or not good. We may ask that when Katlin is in IOP that he is not alone with the kids for a while just to make sure he is ok. Even Katlin not to be alone for a whuile iof possible to just have eyes on him to make syure he is ok. This I when he discharges not now. We dont have a d/c date yet we want to make sure he has no SI suiccial ideations or voices and is back to himself. LUCILLE (LAISHA) What is katlin like when he is doing well what should we look for? OXANA: From what it seems- im not sure the voices will ever go away His usual self- he will be working, doing physical work, gets things done around the house, in the yard, he will laugh, tell jokes, LUCILLE (LAISHA) I asked katlin if he was hearing voices he said "yes" I told him to ask staff nursing for a PRN med (as needed) to help quiet voices. To get right dose he needs. Not to keep it to himself and suffer. Also asked him if having suicidal thoughts to tell staff or let them know if he has a plan while here. So they can help him talk to him , meds. Lets get this right. OXANA: I know he wants more than anything for the voices to stop and leave him alone but I know its hard for him to think of meds because he doesnt believe in taking pills and I personally dont either, we are a natural minded family, but I think we need to be more open to options and if it means taking medication, so be it. Anything to help him feel better about life and anything to make the voices stop. I know he says he doesnt like how the meds make him sleep all day , makes him tired all the time then hes unable to do anything get anything done. I remember earlier in the year when the meds were making the voices wuieter, he was nervous that he couldnt hear them when they were talking anout planning making plans to abduct the family or whatevbr katlin felt he needed to hear every word and make sure he knows what the voices are planning, so I think that was during his worse times LUCILLE (LAISHA) So we are going to end this meeting for now. Its a lot the first day. Want to walk with katlin to RNs to aslk for PRN.med. Soimteimes with these meds there are side effects initially then they stop side effects as like sleeping a lot.
[2018-04-02 16:24] VITALS: BP 136/88
[2018-04-02 19:40] VITALS: BP 117/66
[2018-04-03 07:48] VITALS: BP 91/57
--- NOTE | 2018-04-03 11:06 | SOCIAL WORKER PROG NOTE PSYCH ---
Social Work Progress Note Progress Note came in for a family meeting, she was concerned with his mental health, she stated "did he tell you about the device in his head", is deaf, we could not connect to the debbie, and she is requesting a live translator and interpreter for next family session. We need to look into this marina. Pt is glum, plagued by voices, and has a flat affect, he has some insight to current condition and is concerned.
[2018-04-03 11:59] VITALS: BP 121/70
--- NOTE | 2018-04-03 15:19 | CP SOUTH PROGRESS NOTE PSYCH ---
Psych (Inpt) Progress Note Progress Note Vital Signs Date Time Temp Pulse B/P B/P Pulse O2 FiO2 04/03 1159 87 121/70 04/03 0748 96.3 61 91/57 04/02 1940 97.4 73 117/66 Mental Status Examination: The patient was alert and oriented to time, place, and person. He was cooperative and calm, Normal psychomotor activity, No abnormal or bizarre behaviors. Normal speech, constricted affect, Depressed mood, commands of suicide, Denied homicidal ideation, acknowledge multiple voices he believes 3 or 4 voices. Did not seem paranoid, there were no specific delusions during the interview, coherent, there was no thought disorder, seems to have good insight. Showed good judgment in hypothetical situations. He had some difficulties with attention and concentration, did not seem to have any difficulties with short- term memory. Assessment: 43-year-old Single white male who was admitted because of command hallucinations to hurt self. The patient was admitted previously in [place] and may be also on [place]. The patient's girlfriend lives locally in [facility] and has been living with her recently. He still has active hallucinations of 3 or 4 voices telling him to hurt himself as well as other deprecating statements Diagnosis(es): Other specified schizophrenia spectrum cannabis use disorder Treatment Plan: Increase olanzapine to 10 mg at bedtime and Continue all other medications unchanged. Estimate of intellectual functioning: Average. Assets/Strengths Patient Identified Assets/Strengths: Patient summary to be resilient and resourceful, he has a supportive girlfriend. Impression/Plan Impression and Plan: 43-year-old single white male who was admitted because of command hallucinations to hurt self. The patient was admitted previously in [place] and may be also on [place]. The patient's girlfriend lives locally in [facility] and has been living with her recently. He still has active hallucinations of 3 or 4 voices telling him to hurt himself as well as other deprecating statements - Include all active medical diagnosis that require tx DSM 5 Diagnosis(es): Other specified schizophrenia spectrum cannabis use disorder - Initial Tx Plan for Active Psych & Medical Conditions Treatment Plan: Inpatient psychiatric care with safety checks every 15 minutes Nursing assessments, vital signs, and patient education and Biopsychosocial assessment by social work, collateral information, and aftercare planning. Group therapy, milieu therapy, activities therapy Discontinue Risperdal and replace it with olanzapine 7.5 mg at bedtime
[2018-04-03 15:50] VITALS: BP 130/67
[2018-04-03 19:32] VITALS: BP 137/74
[2018-04-04 07:50] VITALS: BP 124/57
--- NOTE | 2018-04-04 11:42 | SOCIAL WORKER PROG NOTE PSYCH ---
Social Work Progress Note Progress Note SW met with the patient for the daily reassessment. He presents as calm and cooperative, however was somewhat lethargic. He states that is mood is "tired," and that he is still hearing the voices. He states that the voices are saying negative things and telling him "they will get him." He states that his voices are no longer command in nature, however are still prominent. He reports that he feels the medications are helping, however they "make him feel groggy." He reports that his depression is a 5 out of 10, 10 being the most severe. He is not clear how to rate his anxiety, as he just woke up. He denies any current suicidal or homicidal ideations. He participated in a family meeting with his and another meeting will need to be set up next week. It appears that there was difficulty with communicating with his using the[employer] system, as she is hearing impaired and a live textile machinery sales representative was requested. A message was left for Claudia Lugo, medical operations supervisor at [facility], to see if she can assist with obtaining an textile machinery sales representative for the meeting. Of note, there has not been a meeting set up at this time.
--- NOTE | 2018-04-04 12:03 | SOCIAL WORKER PROG NOTE PSYCH ---
Social Work Progress Note Progress Note Concurrent review completed on the [facility] online portal and is listed as Pended. Pended Authorization # [id number] Client Authorization # [id number] Type of Request CONCURRENT
[2018-04-04 12:20] VITALS: BP 107/63
--- NOTE | 2018-04-04 12:32 | CP SOUTH PROGRESS NOTE PSYCH ---
Psych (Inpt) Progress Note Progress Note Vital Signs Date Time Temp Pulse Resp B/P B/P Pulse O2 O2 Flow FiO2 04/04 1220 73 107/63 04/04 0750 96.7 54 124/57 04/03 1932 97.3 78 137/74 04/03 1550 69 130/67 Mental Status Examination: The patient was tired in the afternoon and taking a nap but he was arousable and oriented to time, place, and person. He was cooperative and calm, normal psychomotor activity, no abnormal or bizarre behaviors, no agitation. Normal speech, constricted affect, depressed mood, denied homicidal ideation, Reported minor improvement in auditory hallucinations, acknowledge multiple voices (3 or 4 voices) with commands to kill self and also deprecating he is isolative but did not seem paranoid, there were no specific delusions during the interview (however, yesterday his girlfriend came in and indicated that he does have some delusions about device inside his head that belt picker certain waves and he acknowledged that. no thought disorder, seems to have good insight, difficulties with attention and concentration, did not seem to have any difficulties with short-term memory. Assessment: 43-year-old Single White male who was admitted because of command hallucinations to hurt self. The patient was admitted previously in [place] and may be also on [place]. The patient's girlfriend lives locally in [place], [place] still has active hallucinations of 3 or 4 voices telling him to hurt himself with relative improvement today compared to yesterday Voices are also deprecating In yesterday's family meeting, girlfriend prompted him to tell us about his delusion about having a device in his head that picks up certain wavelength Diagnosis(es): Other Specified Schizophrenia spectrum disorder cannabis use disorder Treatment Plan: Increase olanzapine to 15 mg at bedtime Continue all other medications unchanged.
[2018-04-04 15:55] VITALS: BP 102/60
[2018-04-04 19:46] VITALS: BP 129/72
[2018-04-05 08:50] VITALS: BP 110/71
[2018-04-05 12:33] VITALS: BP 107/65
[2018-04-05 15:56] VITALS: BP 128/80
[2018-04-05 19:26] VITALS: BP 118/62
--- NOTE | 2018-04-05 21:53 | CP SOUTH PROGRESS NOTE PSYCH ---
Psych (Inpt) Progress Note Progress Note Chief Complaint Discussed overnight events with RN and staff. As per RN report, the patient appeared to be sleeping throughout the night. No PRNs/restrains required in the last 24hrs. I saw the patient this morning with the treatment team. He reported feeling fine although he continues to have auditory hallucinations intrusive, derogatory and command type to kill self with negative connotations. He is reported hearing multiple voices and unable to distract the, although they are less intense less frequent. He denies suicidal/homicidal thoughts/intent/plans at present. He is isolating himself in bed all day long and withdrawn. He has adequate appetite and fair sleep. He is compliant to medications, no side effects reported and none in evidence. Vitals reviewed Vital Signs Result Date Time B/P 118/62 04/05 1926 Temp 96.9 04/05 1926 Pulse 80 04/05 1926 Pulse Ox 97 04/01 1707 Resp 15 04/01 1707 O2 Delivery Room Air 04/01 1400 Mental Status Examination Consciousness: Awake, alert Orientation: A&O x4, oriented to person, place, year and situation Appearance: appears stated age, dressed in casual attire, fair hygiene Behavior: calm and cooperative Attitude: guarded Eye Contact: staring at times Speech: need prompting, answers in short phrases Mood: fine Affect: mood-congruent, constricted to dysphoric with minimal reactivity Thought Process: organized Thought Content: isolative, withdrawn, lack of motivation, but denies suicidal/ homicidal ideations at the time of the interview, no delusions elicited/ verbalized at present Perceptions: continues to report command auditory hallucinations to kill himself, although less intense Attention: distractible Memory: grossly intact Insight: fair Judgment: limited no psychomotor abnormalities noted Motor: no abnormal movements, Gait WNL Neuro: grossly intact Independent in ADL's and iADL's Labs Reviewed as documented in chart. Allergy Reviewed as documented in chart. Medications Reviewed as documented in chart. Current Medications Sig/Juan Start time Last Medication Dose Route Stop Time Status Admin Acetaminophen 650 MG Q4P PRN 04/01 1545 AC PO Al Hydroxide/Mg 30 ML .STK-MED ONE 04/05 0244 DC Hydroxide PO 04/05 0245 Al Hydroxide/Mg 30 ML Q4-6 PRN PRN 04/01 1545 AC 04/05 Hydroxide PO 0244 Benztropine Mesylate 1 MG Q6P PRN 04/01 1545 AC 04/05 PO 1747 Haloperidol 5 MG Q6P PRN 04/01 1545 AC 04/05 PO 1747 Lorazepam 2 MG Q6P PRN 04/01 1545 AC PO Lorazepam 2 MG AT BEDTIME NEED.. 04/01 1545 AC PO Lorazepam 1 MG Q4P PRN 04/01 1545 AC 04/04 PO 1756 Magnesium Hydroxide 30 ML AT BEDTIME PRN 04/01 1545 AC PO Nicotine 2 MG Q2 HRS NEEDED PRN 04/02 1615 AC PO Olanzapine 15 MG AT BEDTIME 04/04 2100 AC 04/05 PO 212 Assessment 43-year-old White male who continues to have command hallucinations to kill himself although less intense. Diagnosis Other Specified Schizophrenia spectrum disorder Rule out unspecified depressive disorder Cannabis use disorder Hyperlipidemia, combined Treatment Plan Continue current medication regimen
[2018-04-06 08:01] VITALS: BP 104/54
[2018-04-06 11:59] VITALS: BP 127/73
[2018-04-06 15:48] VITALS: BP 135/66
--- NOTE | 2018-04-06 18:06 | CP SOUTH PROGRESS NOTE PSYCH ---
Psych (Inpt) Progress Note Progress Note Chief Complaint Discussed overnight events with RN and staff. No PRNs/restrains required in the last 24hrs. As per RN report, the patient slept well. I saw the patient this morning with the treatment team. He reported feeling OK he continues to hear voices all the time command type to kill self but less intense less frequent. He denies suicidal/homicidal ideations. Isolative and withdrawn into his room most of the time. He has adequate appetite and fair sleep. He is compliant to medications. Vitals reviewed Vital Signs Result Date Time B/P 135/66 04/06 1548 Pulse 69 04/06 1548 Temp 95.7 04/06 0801 Pulse Ox 97 04/01 1707 Resp 15 04/01 1707 O2 Delivery Room Air 04/01 1400 Mental Status Examination Consciousness: Awake, alert Orientation: A&O x4, oriented to person, place, year and situation Appearance: appears stated age, dressed in casual attire, fair hygiene Behavior: calm and cooperative Attitude: guarded Eye Contact: staring at times Speech: need prompting, answers in short phrases Mood: OK Affect: mood-congruent, constricted to dysphoric Thought Process: organized Thought Content: isolative, withdrawn, lack of motivation, but denies suicidal/ homicidal ideations at the time of the interview, no delusions elicited/ verbalized at present Perceptions: continues to report command auditory hallucinations to kill himself, but less intense Attention: distractible at times Memory: grossly intact Insight: fair Judgment: fair no psychomotor abnormalities Motor: no abnormal movements Neuro: grossly intact Independent in ADL's and iADL's Labs Reviewed as documented in chart. Allergy Reviewed as documented in chart. Medications Reviewed as documented in chart. Current Medications Sig/Juan Start time Last Medication Dose Route Stop Time Status Admin Acetaminophen 650 MG Q4P PRN 04/01 1545 AC PO Al Hydroxide/Mg 30 ML .STK-MED ONE 04/06 014 DC Hydroxide PO 04/06 0142 Al Hydroxide/Mg 30 ML Q4-6 PRN PRN 04/01 1545 AC 04/06 Hydroxide PO 014 Benztropine Mesylate 1 MG Q6P PRN 04/01 1545 AC 04/05 PO 174 Haloperidol 5 MG Q6P PRN 04/01 1545 AC 04/05 PO 174 Lorazepam 2 MG Q6P PRN 04/01 1545 AC PO Lorazepam 2 MG AT BEDTIME NEED.. 04/01 1545 AC PO Lorazepam 1 MG Q4P PRN 04/01 1545 AC 04/04 PO 1756 Magnesium Hydroxide 30 ML AT BEDTIME PRN 04/01 1545 AC PO Nicotine 2 MG Q2 HRS NEEDED PRN 04/02 1615 AC PO Olanzapine 15 MG AT BEDTIME 04/04 2100 AC 04/05 PO 2129 Assessment 43-year-old White male who continues to have command hallucinations to kill himself although less intense. Continues to be isolated and withdrawn to self. Diagnosis Other Specified Schizophrenia spectrum disorder Rule out unspecified depressive disorder Cannabis use disorder Hyperlipidemia, combined Treatment Plan Continue current medication regimen
[2018-04-06 20:15] VITALS: BP 153/75
[2018-04-07 08:01] VITALS: BP 133/73
[2018-04-07 12:08] VITALS: BP 131/71
--- NOTE | 2018-04-07 14:52 | CP SOUTH PROGRESS NOTE PSYCH ---
Psych (Inpt) Progress Note Progress Note Mental Status Examination: The patient was tired but oriented to time, place, and person. He was cooperative and calm, normal psychomotor activity, no abnormal or bizarre behaviors, no agitation. Reduced speech, constricted affect, depressed mood, denied homicidal ideation, Reported improvement in auditory hallucinations: "voices are much quiter" denied commands to kill self over the weekend, he is isolative but did not seem paranoid, there were no specific delusions during the interview (however, yesterday his girlfriend came in and indicated that he does have some delusions about device inside his head that crab picker certain waves and he acknowledged that. No significant thought disorder, some difficulties with attention and concentration. Assessment: 43-year-old Single White Male who was admitted because of command hallucinations to hurt self. The patient was admitted previously in [place] and [place]. The patient's girlfriend lives locally in [place], [place] still has active hallucinations of 3 or 4 voices telling him to hurt himself with relative improvement today compared to yesterday The patient's is showing gradual improvement in the described him as being quieter and not as distressing. He denied commands to kill self over the weekend and described what seems to be noise as opposed to words. Diagnosis(es): Other Specified Schizophrenia spectrum disorder cannabis use disorder Treatment Plan: Increase olanzapine to 20 mg at bedtime Continue all other medications unchanged.
[2018-04-07 15:22] VITALS: BP 127/72
--- NOTE | 2018-04-07 17:13 | SOCIAL WORKER PROG NOTE PSYCH ---
Social Work Progress Note Progress Note Abdelrahman was reading in the [employer]. Introduced myself as his social services coordinator this week. He looked exhausted and down. He reported that the voices have gotten softer, but still there. When asked what the voices are saying? He said "riduculous things like my kids aren't my kids", "my family doesn't want me in the family." He is very tired of hearing all of these distressing comments and he is hoping to experience some alleviation from them. He also reported hearing a sound during our discussion. He reports it's like a sotomayor/ ringing noise that he hears and animals can here. He stated a dog almost attacked him because of it. Reports that these voices started about 7 months ago and that before that he wasn't experiencing this. He feels with the current symptoms he has he is unable to function. He is not working due to all of this. He is also reporting poor sleep due to the auditory hallucinations. He reported only a few hours of sleep last night and was trying to get some sleep today. He was quite irritable about being woken up several times throughout the day. I mentioned that I may try to set up a meeting with his for and that I was going to try and get a interior design consultant. He said he would see his beth and pass the message along to have a meeting on at 1pm. I told him this was pending I could get someone to help.
[2018-04-07 19:45] VITALS: BP 147/80
[2018-04-08 08:26] VITALS: BP 122/78
--- NOTE | 2018-04-08 11:54 | SOCIAL WORKER PROG NOTE PSYCH ---
Social Work Progress Note Progress Note GOMEZ DE LEÓN [id number] 1975 GOMEZ DE LEÓN [id number] Pended Authorization # Client Authorization # Type of Request [id number] CONCURRENT Date of Admission/ Start of Services Requested From Submission Date 04/01/2018 04/08/2018 04/08/2018
[2018-04-08 12:28] VITALS: BP 118/69
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
[2018-04-08 15:49] VITALS: BP 135/80
--- NOTE | 2018-04-08 16:40 | SOCIAL WORKER PROG NOTE PSYCH ---
Social Work Progress Note Progress Note Abdelrahman reports heartburn today. Hoping to talk to the doctor about prescribing something to help. I let him know that I secured an interpreter translator for Saturday at 11am. Reports voices today, but faint. He said they are still saying negative things in nature. Reports his mood is ok. Reports no side effects from medication. Appetite is good. Sleep is still problematic. Reports he woke at 2:45am and tried to go back to sleep. He is interested in IOP when he leaves. We will talk more about where that may be on .
[2018-04-08 20:06] VITALS: BP 106/71
[2018-04-09 08:31] VITALS: BP 114/79
[2018-04-09 12:20] VITALS: BP 124/64
--- NOTE | 2018-04-09 14:35 | CP SOUTH PROGRESS NOTE PSYCH ---
Psych (Inpt) Progress Note Progress Note Include the following elements, when applicable: Involvement in the active treatment of the patient with behavioral observations of the patient and the patient's response to the treatment. Review of the ongoing treatment process in the context of the treatment plan. Indication of how multi-disciplinary staff members are carrying out the treatment plan. Plans for future interventions and recommendations for revision of the treatment plan. Liaison with other physicians/providers. Progress Note: In bed for most of the day, stated that he has some lower leg pain discomfort, later explained he thought it was restless legs, he thinks related to the olanzapine. We discussed trying the ativan for the next 1-2 nights after the zyprexa to see if that would help relieve this; and that there are other alternatives - dividing olanzapine dose into morning and night, and other medications if this is in fact an akathisia type thing which it may not be. He also c/o heartburn, but no other AE. He stated that the voices are unchanged but he has been in bed most of the day. MSE: middle aged man, fair to poor grooming, quiet and somewhat withdrawn but able to give some history. His speech is normal. Affect is constricted, mood is neutral. Thinking is linear. No evidence of delusional thinking or thoughts to harm himsef. Chronic AH remain but does not appear to be internally preoccupied. Insight and judgment are fair. 43 year old man with a history of AH, withdrawal, with worsening voices and some paranoia prior to admission. Olanzapine is being titrated up. Continue current plan of care, discuss dividing olanzapine if he still complains of difficulty with voices in the day time and restless legs or other discomfort. 1x dose of pepcid for heartburn.
[2018-04-09 16:09] VITALS: BP 125/71
[2018-04-09 19:51] VITALS: BP 137/69
--- NOTE | 2018-04-10 07:53 | CP SOUTH PROGRESS NOTE PSYCH ---
Psych (Inpt) Progress Note Progress Note Vital Signs Date Time Temp Pulse B/P B/P Pulse O2 O2 Flow FiO2 04/10 1212 100 146/74 04/09 1951 97.0 88 137/69 07 1609 83 125/71 Mental Status Examination: in bed at 13:20, tired, reported that sleep remains a problem at night and that' s why he's sleeping during the day oriented to time, place, and person. cooperative and calm, no abnormal or bizarre behaviors, no agitation. minimal speech, blunted affect, depressed mood, denied homicidal ideation, less auditory hallucinations (quiter, and no longer commanding to kill self isolative on the unit (? 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 The patient was admitted previously in [place] and [place] (reported hearing 3 or 4 voices telling him to hurt himself). Since his admission to the inpatient psychiatric unit at [facility] on , Abdelrahman has shown gradual improvement (voices are quieter and not as distressing, denied commands to kill self). Diagnoses: Other Specified Schizophrenia spectrum/Psychotic Disorder cannabis use disorder Treatment Plan: Add trazodone 50 mg at bedtime Change PRN Ativan to standing Ativan 1 mg at bedtime Continue olanzapine 20 mg at bedtime
[2018-04-10 12:12] VITALS: BP 146/74
--- NOTE | 2018-04-10 14:03 | IP INCIDENTAL NOTE PSYCH ---
Incidental Note Notation: Updated Treatment Plan (14:00 hours): The patient reported what seemed like restless legs or what he described as "stiffness" in his legs at bedtime interfering with his sleep. It is very likely that its side effects from the 20 mg of Zyprexa. We discussed options, and we agreed on the following : Cancel trazodone 50 mg at bedtime Replace with Benadryl 50 mg at bedtime and Ativan 1 mg at bedtime Reduce olanzapine to 15 mg at bedtime
--- NOTE | 2018-04-10 14:23 | SOCIAL WORKER PROG NOTE PSYCH ---
Social Work Progress Note Progress Note Abdelrahman was complaining today about stiffness and an achy feeling in his legs. He thinks it is from the Zyprexa since he has noticed it after taking it at night. He reports it was keeping him from falling asleep the last couple of nights. I asked if he had spoken to the doctor? He said he hadn't yet. Encouraged him to do so. He continues to report voices. Reports that they are saying negative things. He appeared distracted during our meeting. I asked if the voices were speaking to him now? He said yes "they are calling me names." Finds it difficult to tune them out. He is feeling sad and a bit anxious and hopeless about them ever going away. He also doesn't want to be over medicated to the point he can't function either. We talked about IOP the purpose and benefits of doing IOP after inpatient. He is in agreement and would like to go to [facility]. He said he may have to walk, since he doesn't have any money for a bus. I informed him of [facility] [employer] and told him that may be an option for transport. He was not familiar with their service. Reviewed family meeting tomorrow at 11am. Abdelrahman said he confirmed this with his significant other Oxana. Dr. Obregon saw him during this session. He heard Abdelrahman's complaints about his legs. He will prescribe Abdelarhman some Benadryl tonight to see if that helps.
[2018-04-10 15:47] VITALS: BP 146/77
[2018-04-10 19:53] VITALS: BP 125/73
[2018-04-11 08:53] VITALS: BP 142/80
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
[2018-04-11 12:46] VITALS: BP 133/75
--- NOTE | 2018-04-11 13:31 | SOCIAL WORKER PROG NOTE PSYCH ---
Social Work Progress Note Progress Note Abdelrahman's significant other Oxana came in for an 11am family meeting. An japanese interpreter from [employer] came to help interpret for Oxana who is deaf. The japanese interpreter's name was Robbie Chapolivier. Oxana expressed concerns during the meeting for Abdelrahman's symptoms and if he will get relief from the voices. She had alot of general questions about follow up care. We reviewed the plan for Abdelrahman to go to IOP and the benefits associated with IOP. We talked about the importance of Abdelrahman refraining from cannabis use. They both (Abdelrahman and Oxana) seem interested in the possible benefits of CBD oil and other natural remedies for tx, but both agreed that Abdelrahman should refrain from using cannabis and stay on his medications. Oxana has seen some improvement in Abdelrahman's mood since being on the unit, but is concerned about his irritability. Dr. Obregon offered to possibly start an antidepressant for Abdelrahman. He has been on Zoloft in the past. During the meeting Abdelrahman looked distracted/ distant with constricted affect. He continues to look fatigued. He is still hearing voices today. We let Oxana know that our concern is safety and to be assessing the risks involved with the voices he is experiencing. Last night he had disclosed to Dr. Obregon that the voices were telling him to kill himself. Talked about continuing to assess how he is doing through the weekend into early next week. Oxana was appreciative of the japanese interpreter services. I told her if she has any more concerns she can write me a note and pass it to nursing.
--- NOTE | 2018-04-11 14:14 | SOCIAL WORKER PROG NOTE PSYCH ---
Social Work Progress Note Progress Note Concurrent review for continued stay completed and submitted to [facility] for patient today, requesting 6 additional days.
[2018-04-11 15:40] VITALS: BP 125/72
[2018-04-11 19:25] VITALS: BP 150/78
[2018-04-12 08:42] VITALS: BP 117/76
--- NOTE | 2018-04-12 09:58 | CP SOUTH PROGRESS NOTE PSYCH ---
Psych (Inpt) Progress Note Progress Note Vital Signs Date Time Temp Pulse Resp B/P B/P Pulse O2 O2 Flow FiO2 04/12 1229 99 128/62 04/12 0842 97.0 77 117/76 04/11 1925 97.8 96 150/78 04/11 1540 82 125/72 Mental Status Examination: The patient reported that he slept well, denied having restlessness or stiffness in the legs. He was alert and oriented to time, place, and person. He was cooperative and calm, there were no abnormal or bizarre behaviors, no agitation. His speech is minimal, continues to have depressed mood but he is starting to show more animation in his affect and general demeanor. He is also more visible on the unit. He reported that the hallucinations are improving but he still have them he hears multiple voices usually deprecating and negative than putting him down Denied hearing commands to kill self last night, denied commands to kill others or homicidal ideation, He denied feeling paranoid and did not bring up delusions today, He was coherent with no significant thought disorder Assessment Update: Abdelrahman is a 43-year-old Single White Male who was admitted because of command hallucinations to kill self. The patient was admitted previously in [place] and [place] (reported hearing 3 or 4 voices telling him to hurt himself). Since his admission on 04/01/2018, Abdelrahman has shown gradual improvement (voices are quieter and not as distressing). Today, he seemed more animated and showing a brighter affect and visible on the unit. He denied commands to kill self or others in the past 24 hours, he does still continue to hear the voices with lower intensity He also reported that the tinnitus that he was hearing which he described as a squeal or a whistle has much improved with the gabapentin Diagnoses: Other Specified Schizophrenia spectrum/Psychotic Disorder cannabis use disorder Treatment Plan: Increase gabapentin to 600 mg 3 times a day Continue trazodone 50 mg at bedtime Ativan 1 mg at bedtime Continue olanzapine 20 mg at bedtime
[2018-04-12 12:29] VITALS: BP 128/62
[2018-04-12 16:23] VITALS: BP 129/61
[2018-04-12 19:09] VITALS: BP 122/73
[2018-04-13 08:15] VITALS: BP 119/70
--- NOTE | 2018-04-13 08:20 | CP SOUTH PROGRESS NOTE PSYCH ---
Psych (Inpt) Progress Note Progress Note Vital Signs Date Time Temp Pulse Resp B/P B/P Pulse O2 O2 Flow FiO2 Mean Ox Delivery Rate 04/13 1205 93 123/63 04/13 0815 95.0 70 119/70 04/12 1909 96.6 88 122/73 04/12 1623 91 129/61 No new labs Mental Status Examination: slept well, denied having restlessness or stiffness in the legs. alert and oriented to time, place, and person. He was cooperative and calm, there were no abnormal or bizarre behaviors, no agitation. His speech is minimal , reported some improvement in mood, his affect and body langauge show more animation visible on the unit. He reported that the hallucinations are improving (still hears multiple voices usually deprecating) Denied hearing commands to kill self last night, denied commands to kill others or homicidal ideation, He denied feeling paranoid, there were no delusions today, He was coherent/no significant thought disorder Assessment Update: more animated and showing a brighter affect denied commands to kill self or others Diagnoses: Other Specified Schizophrenia spectrum/Psychotic Disorder cannabis use disorder Treatment Plan: Continue same medications
[2018-04-13 12:05] VITALS: BP 123/63
[2018-04-13 16:10] VITALS: BP 132/80
[2018-04-13 19:42] VITALS: BP 127/76
[2018-04-14 08:23] VITALS: BP 108/74
--- NOTE | 2018-04-14 08:55 | CP SOUTH PROGRESS NOTE PSYCH ---
See Addendum Psych (Inpt) Progress Note Progress Note Vital Signs Date Time Temp Pulse B/P 04/14 1216 92 132/79 04/14 0823 97.1 76 108/74 04/13 1942 97.1 86 127/76 No new labs Mental Status Examination: Abdelrahman was alert and oriented to time, place, and person. He was cooperative and calm. There were no abnormal or bizarre behaviors, no agitation. Abdelrahman reported some improvement in mood, his affect and body langauge showed more animation. Patient reported that the hallucinations are improving (still hears multiple voices usually deprecating). Patient denied hearing commands to kill self, denied commands to kill others or homicidal ideation, denied feeling paranoid, there were no delusions today, was coherent/no significant thought disorder Assessment Update: more animated and showing a brighter affect denied commands to kill self or others Diagnoses: Other Specified Schizophrenia spectrum/Psychotic Disorder cannabis use disorder Treatment Plan: Continue same medications
[2018-04-14 12:16] VITALS: BP 132/79
--- NOTE | 2018-04-14 15:15 | SOCIAL WORKER PROG NOTE PSYCH ---
Social Work Progress Note Progress Note Faxed IOP Transfer to [facility].
[2018-04-14 16:05] VITALS: BP 134/77
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
[2018-04-14 20:01] VITALS: BP 146/78
[2018-04-15] MEDS ORDERED: SERTRALINE HCL50 MG PO (08:43)
[2018-04-15] MEDS ORDERED: GABAPENTIN300 M2 PO (08:43)
--- NOTE | 2018-04-15 08:47 | SOCIAL WORKER PROG NOTE PSYCH ---
Social Work Progress Note Progress Note Dr. Obregon and I met with Abdelrahman together this morning. He is feeling ready to discharge today. He is continuing to hear voices, but not of a command nature. Denies SI/HI. Continues to have a ringing sound in his ear. Dr. Obregon encouraged him to follow up with an ENT. He thinks Oxana will be able to pick him up after his IOP intake today. He will reach out to her. I told him I will provide him the number for [facility] so he can try and get rides to [facility]. Started Zoloft. Encouraged him to reach out to a prescriber at [facility] if he is having any issues around meds. Scheduled an intake for [facility] for 1:15pm today.
[2018-04-15] MEDS ORDERED: OLANZAPINE10 M1 PO (08:50)
[2018-04-15] MEDS ORDERED: FAMOTIDINE20 M1 PO (08:50)
[2018-04-15] MEDS ORDERED: NICORELIEF2 MG PO (08:50)
--- NOTE | 2018-04-15 08:53 | Patient Discharge Instructions ---
Psych Discharge Inst General Discharge Information Reason for Admission: audio hallucinations Psy Discharge Primary Diag+ Unspecified Psychotic DO Summary Tests/Major Procedures Lab Cholesterol 206 MG/DL H 03/31/18 1532 Cholesterol/HDL Ratio 6 % H 03/31/18 1532 HDL Cholesterol 36 mg/dL L 03/31/18 1532 Hemoglobin A1c 5.8 % 03/31/18 1532 LDL Cholesterol, Calc 133 mg/dL H 03/31/18 1532 Triglycerides 188 mg/dL H 03/31/18 1532 Studies Pending at DC: None Patient Instructions Contact Information Your Psychiatrist on [facility] was Rakesh Obregon MD * If you are experiencing an emergency related to this hospitalization, please call [phone] to contact the treating psychiatrist or the psychiatrist-on- call. * To Request a copy of your medical records, please contact the Medical Records Department at [phone]. * To request results of studies pending at the time of discharge, please call [phone]. * Continue your Medications until directed to stop by your Healthcare provider. General Medication Information Please continue to take your new medications and your continued home medications , unless otherwise indicated on your discharge medication list, or unless directed by your MD or PLUMBER to stop them. Special Instructions Diet Regular Activity Normal - Tobacco Use Treatment Offered Post DC Medications Offered: Script Given-See Med List Post DC Tobacco Treatment Plan: Refused Tobacco Tx Pgm - EtOH/Drug Use D/O Treatment Offered Post DC Medications Offered: NA-No EtOH/Drug Use D/O Post DC EtOH/SubAbuse TX Plan: NA-No EtOH/Drug Use D/O Metabolic Screening Patient on a neuroleptic(s) . Enter below results for Hemoglobin A1C, and lipid panel if obtained during the last 365 days. BMI: 26.95 Blood Pressure: 146/78 Laboratory Results From [facility] (If applicable): Lab Cholesterol 206 MG/DL H 03/31/18 1532 Cholesterol/HDL Ratio 6 % H 03/31/18 1532 HDL Cholesterol 36 mg/dL L 03/31/18 1532 Hemoglobin A1c 5.8 % 03/31/18 1532 LDL Cholesterol, Calc 133 mg/dL H 03/31/18 1532 Triglycerides 188 mg/dL H 03/31/18 1532 Advance Directives Does the Patient have Medical Advance Directives No/Refused further info Does Pt have Psychiatric Advance Directives? No/Refused further info Does Patient have a Designated Surrogate Decision Maker: No Information About Psychiatric Advance Directives Provided? Refused Discharge Plan Post Hospital Treatment Plan: [facility]-IOP
--- NOTE | 2018-04-15 08:58 | CP SOUTH PROGRESS NOTE PSYCH ---
Psych (Inpt) Progress Note Progress Note Treatment team (MARTIN, RN, Group and Activities Therapist, and psychiatrist) discussed Pt.'s progress, treatment plan, and aftercare plans. Vital Signs Date Time Temp Pulse B/P B/P O2 04/15 917 96.6 75 110/61 04/14 2001 97.7 86 146/78 04/14 1605 87 134/77 No new labs Mental Status Examination: Mr. Goldberg reported that the audio hallucinations (i.e. the 3-4 voices he's been hearing) are "a little bit" less intrusive Mr. Goldberg denied hearing commands to kill self, denied hearing commands to kill others denied homicidal ideation, denied feeling paranoid, there were no delusions today, was coherent/no significant thought disorder Abdelrahman was alert and oriented to time, place, and person. He was cooperative, calm. There were no abnormal or bizarre behaviors, no agitation. Abdelrahman reported some improvement in mood, his affect and body langauge showed more animation, denied feeling hopeless about his life, denied feeling it is worthless, and denied thinking of suicide or wishing . Assessment Update: more animated and showing a brighter affect denied commands to kill self or others Diagnoses: Other Specified Schizophrenia spectrum/Psychotic Disorder cannabis use disorder Treatment Plan Update: Discharge to [facility]'s mental health track IOP
[2018-04-15 09:17] VITALS: BP 110/61
[2018-04-15 12:18] VITALS: BP 129/78
[2018-04-15 12:26] VITALS: BP 129/78
--- NOTE | 2018-04-15 12:44 | DISCHARGE SUMMARY REPORT-PSYCH ---
Visit Information Visit Dates/Diagnosis' Admission Date: 04/01/18 Discharge Date: 04/15/18 Reason for Admission: audio hallucinations Psy Discharge Primary Diag: Unspecified Psychotic DO Hospital Course Significant Lab Findings: Lab Cholesterol 206 MG/DL H 03/31/18 1532 Cholesterol/HDL Ratio 6 % H 03/31/18 1532 HDL Cholesterol 36 mg/dL L 03/31/18 1532 Hemoglobin A1c 5.8 % 03/31/18 1532 LDL Cholesterol, Calc 133 mg/dL H 03/31/18 1532 Triglycerides 188 mg/dL H 03/31/18 1532 Course Complications: Did not have any complications while he was on the inpatient psychiatric unit Consultations: The patient had a history and physical examination while he was on the inpatient psychiatric unit. Please refer to the patient's electronic health record for the details of the H&P. Physical Exam General Appearance Alert, Oriented X3, Cooperative, No Acute Distress Skin No Rashes, No Breakdown HEENT Atraumatic, PERRLA, EOMI Neck Supple, No JVD, No thryomegaly Lymphatic Cervical nl Cardiovascular Regular Rate, Normal S1, Normal S2, No Murmurs Lungs Clear to Auscultation, Normal Air Movement Abdomen Normal Bowel Sounds, Soft, No Tenderness Neurological Exam Findings: Normal Gait, Normal Speech, Strength at 5/5 X4 Ext, Normal Tone, Sensation Intact, Cranial Nerves 3-12 NL, Reflexes 2+ Cranial Nerves II through XII: 3 to 12 intact Extremities No Clubbing, No Cyanosis, No Edema, Normal Pulses Vascular Normal Pulses, Pulses Symmetrical Last 24 Hrs of Labs/Lan: Laboratory Tests 03/31 03/31 1537 1532 Chemistry Sodium (137 - 145 mmol/L) 144 Potassium (3.5 - 5.1 mmol/L) 4.2 Chloride (98 - 107 mmol/L) 102 Carbon Dioxide (22 - 30 mmol/L) 30 Anion Gap (5 - 16) 11 BUN (9 - 20 mg/dL) 12 Creatinine (0.7 - 1.2 mg/dL) 0.9 Estimated GFR (>60 ml/min) > 60 BUN/Creatinine Ratio (7 - 25 %) 13.3 Glucose (65 - 99 mg/dL) 91 Calcium (8.4 - 10.2 mg/dL) 9.8 Total Bilirubin (0.2 - 1.3 mg/dL) 0.6 AST (17 - 59 U/L) 22 ALT (21 - 72 U/L) 31 Alkaline Phosphatase (< 127 U/L) 47 Total Protein (6.3 - 8.2 g/dL) 7.4 Albumin (3.5 - 5.0 g/dL) 4.3 Globulin (1.9 - 4.2 gm/dL) 3.1 Albumin/Globulin Ratio (1.1 - 2.2 %) 1.4 Hematology CBC w Diff NO MAN DIFF REQ WBC (4.8 - 10.8 /CUMM) 8.2 RBC (4.70 - 6.10 /CUMM) 5.14 Hgb (14.0 - 18.0 G/DL) 15.6 Hct (42 - 52 %) 46.5 MCV (80.0 - 94.0 FL) 90.4 MCH (27.0 - 31.0 PG) 30.4 MCHC (33.0 - 37.0 G/DL) 33.6 RDW (11.5 - 14.5 %) 12.9 Plt Count (130 - 400 /CUMM) 305 MPV (7.4 - 10.4 FL) 7.7 Gran % (42.2 - 75.2 %) 51.2 Lymphocytes % (20.5 - 51.1 %) 37.8 Monocytes % (1.7 - 9.3 %) 9.1 Eosinophils % (0 - 5 %) 1.5 Basophils % (0.0 - 2.0 %) 0.4 Absolute Granulocytes (1.4 - 6.5 /CUMM) 4.2 Absolute Lymphocytes (1.2 - 3.4 /CUMM) 3.1 Absolute Monocytes (0.10 - 0.60 /CUMM) 0.7 H Absolute Eosinophils (0.0 - 0.7 /CUMM) 0.1 Absolute Basophils (0.0 - 0.2 /CUMM) 0 Toxicology Urine Opiates Screen (>2000 NG/ML) < 100 Methadone Screen (>300 NG/ML) < 40 Barbiturate Screen (>200 NG/ML) < 60 Ur Phencyclidine Scrn (>25 NG/ML) < 6.00 Amphetamines Screen (>1000 NG/ML) < 100 U Benzodiazepines Scrn (>200 NG/ML) < 85 Urine Cocaine Screen (>300 NG/ML) < 50 Urine Cannabis Screen (>50 NG/ML) 78.80 H Serum Alcohol (<10 MG/DL) < 10.0 Assessment/Plan Assessment: # Schizoaffective Disorder : agree with psych plan. As Ranked By This Provider Problem List: 1. Auditory hallucination 2. Psychosis Miscellaneous Miscellaneous Documentation Attending Case Discussed With: Rakesh Obregon MD Primary Care Physician: Patient Has No Primary Care Dr Patient sees these Specialists none Level of Patient Care: [facility] Resident Review Statement Resident Statement: reviewed images <Electronically signed by Tyree Temple MD> 04/03/1828 Allergies: Coded Allergies: No Known Allergies (03/31/18) Hospital Course/TX Response: 04/02/2018 Dr. Obregon's Initial Impression and Plan: 43-year-old single white male who was admitted because of command hallucinations to hurt self. The patient was admitted previously in [place] and may be also on [place]. The patient's girlfriend lives locally in [facility] and has been living with her recently. He still has active hallucinations of 3 or 4 voices telling him to hurt himself as well as other deprecating statements Diagnosis(es): Other specified schizophrenia spectrum cannabis use disorder Treatment Plan: Inpatient psychiatric care with safety checks every 15 minutes Nursing assessments, vital signs, and patient education and Biopsychosocial assessment by social work, collateral information, and aftercare planning. Group therapy, milieu therapy, activities therapy Discontinue Risperdal and replace it with olanzapine 7.5 mg at bedtime On 04/03/2018 the patient's olanzapine dose was increased to 10 mg at bedtime as he was still struggling with auditory hallucinations that were duplicating On 04/04/2018 the patient's olanzapine dose was increased to 15 mg at bedtime Over the next few days the patient's dose was kept the same, as it was felt that the patient needed more time on the 50 mg to see a difference in the frequency and intensity of his auditory hallucinations. On 04/07/2018 the dose was increased to 20 mg at bedtime The patient's dose was kept at that level up until the day of his discharge which was 04/15/2018 04/15/2018: Vital Signs Date Time Temp Pulse B/P B/P O2 04/15 0917 96.6 75 110/61 No new labs Mental Status Examination: Mr. Goldberg reported that the audio hallucinations (i.e. the 3-4 voices he's been hearing) are "a little bit" less intrusive Mr. Goldberg denied hearing commands to kill self, denied hearing commands to kill others denied homicidal ideation, denied feeling paranoid, there were no delusions today, was coherent/no significant thought disorder Abdelrahman was alert and oriented to time, place, and person. He was cooperative, calm. There were no abnormal or bizarre behaviors, no agitation. Abdelrahman reported some improvement in mood, his affect and body langauge showed more animation, denied feeling hopeless about his life, denied feeling it is worthless, and denied thinking of suicide or wishing . Assessment Update: more animated and showing a brighter affect denied commands to kill self or others Diagnoses: Other Specified Schizophrenia spectrum/Psychotic Disorder cannabis use disorder Treatment Plan Update: Discharge to [facility]'s mental health track IOP Discharge HBIPS - Tobacco Use Treatment Offered Post DC Medications Offered: Script Given-See Med List Post DC Tobacco Treatment Plan: Refused Tobacco Tx Pgm - EtOH/Drug Use D/O Treatment Offered Post DC Medications Offered: NA-No EtOH/Drug Use D/O Post DC EtOH/SubAbuse [place] Plan: NA-No EtOH/Drug Use D/O Metabolic Screening - Screen if on a Neuroleptic Medication - Metabolic screening should include: - Blood Pressure, BMI, Glucose or Hgb A1c, & a - Lipid profile from within the past 365 days. Metabolic Screening Patient on a neuroleptic(s) . Enter below results for Hemoglobin A1C, and lipid panel if obtained during the last 365 days. BMI: 26.95 Blood Pressure: 129/78 Laboratory Results From [facility] (If applicable): Lab Cholesterol 206 MG/DL H 03/31/18 1532 Cholesterol/HDL Ratio 6 % H 03/31/18 1532 HDL Cholesterol 36 mg/dL L 03/31/18 1532 Hemoglobin A1c 5.8 % 03/31/18 1532 LDL Cholesterol, Calc 133 mg/dL H 03/31/18 1532 Triglycerides 188 mg/dL H 03/31/18 1532 Discharge Instructions General Discharge Information Multiple Neuroleptics: Not Applicable Discharge Diet Regular Discharge Activity Normal DC Disposition: Patient was discharged home Referrals Ordered Referrals INTENSIVE OUTPT PSY-SUBSTANCE 04/15/18 [address] [id number] Intensive Outpatient at [facility] Intake 1:15pm [address] [place] [id number] Provider Referral 04/16/18 For Groups: Outpatient Psychiatry [facility] Smoking Cessation Group 04/16/18 4pm [address] [place] Prescriptions Stop taking the following medications: LORazepam (Ativan) 1 MG TAB ORAL Benztropine Mesylate (Benztropine Mesylate) 1 MG TABLET ORAL Haloperidol (Haloperidol) 5 MG TABLET ORAL Start taking the following new medications: Gabapentin (Gabapentin) 300 MG CAPSULE 600 Milligram ORAL THREE TIMES DAILY Qty = 60 No Refills Comments: Last Taken:04/15/18 Time:8AM Sertraline HCl (Sertraline HCl) 50 MG TABLET 50 Milligram ORAL DAILY Qty = 15 No Refills Comments: Last Taken:04/15/18 Time:8AM Nicotine (Nicorelief) 2 MG GUM 2 Milligram ORAL EVERY 2 HOURS NEEDED as needed for cravings Qty = 69 No Refills Comments: Last Taken:NOT USED IN THE HOSPITAL Time: Olanzapine (Olanzapine) 10 MG TABLET 10 Milligram ORAL TWICE DAILY Qty = 60 No Refills Comments: Last Taken:04/15/18 Time:8AM Famotidine (Famotidine) 20 MG TABLET 20 Milligram ORAL TWICE DAILY Qty = 30 No Refills Comments: Last Taken:04/15/18 Time:8AM Studies Pending at Discharge None Copies To: Silvia Middleton APRN
--- NOTE | 2018-04-15 16:44 | SOCIAL WORKER PROG NOTE PSYCH ---
Social Work Progress Note Faxed Referral(s) Referred To: [facility] Transition of Care Documents sent: Health Summary Faxed to: [facility] Fax #: [phone] Faxed by: Adela Regan Date faxed: 04/15/18 Time Faxed: [phone]
== END 2018-04-15 13:23 | DRG 751 ==
LOC: ERH 15:19 → ERHI 04-01 15:30 → CP SOUTH 04-01 15:30 → ENTRNSPT 04-01 17:48 → CP SOUTH 04-01 17:52 → EDTRNSPTSTS 04-01 17:53 → EDTRNSPT 04-01 17:53 → CP SOUTH 04-01 17:59 → CMPTRNSPT 04-01 18:03 → CP SOUTH 04-10 13:21
PROVIDERS: Physician Assistant
DX: F29 Unspecified psychosis not due to a substance or known physiological condition (principal); F12.90 Cannabis use, unspecified, uncomplicated
CPT/HCPCS: 80307; 90832; G0480; J0515; J1630